=== PATIENT | female | born 2000 | race Caucasian/White ===

== ENCOUNTER 2021-10-01 08:17 | Observation (INO) | payer OTHER ==
[~2021-10-01] VITALS: Ht 167.6 cm; Wt 86.2 kg
[2021-10-01 09:46] LABS: HEMOGLOBIN 13.7 gm/dl (12.3-15.3); RED BLOOD COUNT 4.85 M/UL (4.00-5.10); WHITE BLOOD COUNT 9.1 K/UL (4.5-11.0)
[2021-10-01 10:13] LABS: BUN/CREATININE RATIO 15 (0-10)
[2021-10-01] MEDS ORDERED: HYDROCHLOROTH12.5 MG PO (20:43)
[2021-10-02 00:46] LABS: HEMOGLOBIN 11.9 gm/dl (12.3-15.3); RED BLOOD COUNT 4.26 M/UL (4.00-5.10); WHITE BLOOD COUNT 6.1 K/UL (4.5-11.0)
[2021-10-02 01:19] LABS: BUN/CREATININE RATIO 15 (0-10)
== END 2021-10-02 16:41 | disposition home or self-care (01) ==
LOC: ER1 08:17 → CDU 12:30 → MED SURG 4 19:53
PROVIDERS: Emergency Medicine; Physician Assistant; Physician Assistant Medical; ADMIT Internal Medicine
DX: R07.2 Precordial pain (principal); R55 Syncope and collapse; R10.11 Right upper quadrant pain; R00.0 Tachycardia, unspecified; I10 Essential (primary) hypertension; E11.9 Type 2 diabetes mellitus without complications; F17.290 Nicotine dependence, other tobacco product, uncomplicated; F17.200 Nicotine dependence, unspecified, uncomplicated; Z20.822 Contact with and (suspected) exposure to COVID-19; Z88.1 Allergy status to other antibiotic agents; Z90.49 Acquired absence of other specified parts of digestive tract
CPT/HCPCS: ECHO; 36415; 70450; 71045; 80048; 80053; 80307; 81001; 82550; 82553; 83690; 83735; 83874; 84484; 84703; 85025; 85027; 85379; 85610; 85730; 93005; 93306; 93970; 96374; 96375; 99285; C9113; G0378; J2270; J2405; J7030; Q9967; U0002